=== PATIENT | female | born 1995 | race American Indian/Alaskan Native ===

== ENCOUNTER 2020-08-09 06:52 | Day surgery (SDC) | payer BC ==
[2020-08-03 11:10] LABS: Hematocrit 38.8 % (30.3-42.9); Hemoglobin 13.3 gm/dl (10.1-14.3); Mean Corpuscular HGB Conc 34 % (30-34); Mean Corpuscular Volume 96 fl (79-97); Platelet Count 290 K/mm3 (140-440); Red Blood Count 4.06 M/mm3 (3.65-5.03); Red Cell Distribution Width 13.8 % (13.2-15.2)
[~2020-08-09 06:52] MED LIST: ACETAMINOPHEN 500 MG TAB PO SCH; CELECOXIB 200 MG CAP PO NR; GABAPENTIN 300 MG CAP PO NR; LACTATED RINGERS 1,000 ML IV SCH; MIDAZOLAM 2 MG/2 ML INJ IV NR; SCOPOLAMINE TRANSDERMAL PATCH 72 HR TD NR; ceFAZolin/Water 2 GM/20 ML 2 GM/20 ML SYRINGE IV NR
[2020-08-09] MEDS ORDERED: BUPIVACAINE/PF (0.25%) 2.5 MG/ML 30 ML VIAL INFILTRATI ONE ×3 (07:21→08:58)
[2020-08-09] MEDS ORDERED: LIDOCAINE (1%) 10 MG/1 ML VIAL 20 ML MDV ONE (07:21)
[2020-08-09] MEDS ORDERED: ACETAMINOPHEN 325 MG/10.15 ML ORAL LIQD UNIT DOSE PO NR (07:30)
[2020-08-09] MEDS ORDERED: GABAPENTIN 500 MG/10 ML ORAL LIQD PO NR (07:30)
[2020-08-09] MEDS ORDERED: HYDROmorphone 1 MG/1 ML INJ IV PRN (07:33)
[2020-08-09] MEDS ORDERED: ONDANSETRON 4 MG/2 ML INJ IV PRN (07:33)
--- NOTE | 2020-08-09 07:33 | Anesthesia Consultation ---
Anesthesia Consult and Med Hx Date of service: 08/09/20 - Airway Anesthetic Teeth Evaluation: Good ROM Head & Neck: Adequate Mental/Hyoid Distance: Adequate Mallampati Class: Class III Intubation Access Assessment: Possibly Difficult - Pre-Operative Health Status ASA Pre-Surgery Classification: ASA1 Proposed Anesthetic Plan: General - Pulmonary Hx Smoking: Yes (smoked for <6months, quit 3yrs) Hx Respiratory Symptoms: No - Cardiovascular System Hx Hypertension: No - Central Nervous System CVA: No - Endocrine Hx Renal Disease: No Hx Liver Disease: No Hx Insulin Dependent Diabetes: No Hx Non-Insulin Dependent Diabetes: No Hx Thyroid Disease: No - Other Systems Hx Obesity: Yes (BMI 34) - Additional Comments Anesthesia Medical History Comments: No hx anesthetic complications.
--- NOTE | 2020-08-09 07:33 | Anesthesia Day of Surgery ---
Anesthesia Day of Surgery - Day of Surgery Patient Examined: Yes Patient H&P Reviewed: Yes Patient is NPO: Yes
[2020-08-09] MEDS ORDERED: LIDOCAINE MPF (2%) 20 MG/1 ML VIAL 5 ML ONE (07:42)
[2020-08-09] MEDS ORDERED: fentaNYL 100 MCG/2 ML INJ ONE (07:43)
[2020-08-09] MEDS ORDERED: propofoL 200 MG/20 ML VIAL IV ONE ×2 (07:43→08:26)
[2020-08-09] MEDS ORDERED: ACETAMINOPHEN 325 MG/10.15 ML ORAL LIQD UNIT DOSE ONE (07:45)
[2020-08-09] MEDS ORDERED: GABAPENTIN 500 MG/10 ML ORAL LIQD ONE (07:46)
[2020-08-09] MEDS ORDERED: dexAMETHasone 20 MG/5 ML VIAL ONE (08:26)
[2020-08-09] MEDS ORDERED: ONDANSETRON 4 MG/2 ML INJ ONE (08:26)
[2020-08-09] MEDS ORDERED: NEOMY 40 MG/POLYMYXIN B 200,000 UNITS/ML (GU) AMPULE IR ONE ×2 (08:29→08:40)
[2020-08-09] MEDS ORDERED: WATER FOR IRRIG STERILE 1,500 ML BOTTLE IR ONE (08:39)
[2020-08-09] MEDS ORDERED: LIDOCAINE (1%) 10 MG/1 ML VIAL 20 ML MDV INFILTRATI ONE ×2 (08:58)
[2020-08-09] MEDS ORDERED: BACITRACIN ZINC OINT 28.4 GM TP ONE ×2 (08:59)
--- NOTE | 2020-08-09 09:47 | Short Stay Summary ---
Short Stay Documentation Date of service: 08/09/20 - History H&P: obtained from office - Allergies and Medications Current Medications: Allergies No Known Allergies Allergy (Unverified 08/02/20 11:22) Home Medications Medication Instructions Recorded Confirmed Last Taken Type Ibuprofen [Motrin 800 MG tab] 800 mg PO Q8HR PRN #12 tablet 08/09/20 Unknown Rx Active Medications Celecoxib (Celecoxib 200 Mg Cap) 200 mg PO PREOP NR Stop: 08/09/20 23:00 Last Admin: 08/09/20 07:47 Dose: 200 mg Documented by: Hydromorphone HCl (Hydromorphone 1 Mg/1 Ml Inj) 0.5 mg IV Q10MIN PRN PRN Reason: Pain , Severe (7-10) Stop: 08/09/20 20:00 Cefazolin Sodium (Ancef/Sterile Water 2 Gm/20 Ml) 2 gm in 20 mls @ 80 mls/hr IV PREOP NR; Protocol Stop: 08/09/20 23:01 Lactated Ringer's (Lactated Ringers) 1,000 mls @ 100 mls/hr IV DIRECT CHARLY Stop: 08/09/20 23:59 Last Admin: 08/09/20 07:47 Dose: 100 mls/hr Documented by: Midazolam HCl (Midazolam 2 Mg/2 Ml Inj) 2 mg IV PREOP NR Stop: 08/09/20 23:00 Last Admin: 08/09/20 07:55 Dose: 2 mg Documented by: Ondansetron HCl (Ondansetron 4 Mg/2 Ml Inj) 4 mg IV ONCE PRN PRN Reason: Nausea And Vomiting Stop: 08/09/20 18:00 Scopolamine (Scopolamine Transdermal Patch 72 Hr) 1 each TD PREOP NR Stop: 08/09/20 23:00 Last Admin: 08/09/20 09:16 Dose: 1 each Documented by: - Brief post op/procedure progress note Date of procedure: 08/09/20 Pre-op diagnosis: Left breast sebaceous cyst lower inner quadrant Post-op diagnosis: same Procedure: Left breast sebaceous cyst excisional biopsy Anesthesia: GETA Findings: Left breast sebaceous cyst 8:00 position close to sternum-center of cyst with drainage Surgeon: CUAUHTEMOC GONSALES Estimated blood loss: minimal Pathology: list (left breast sebaceous cyst) Specimen disposition: to lab Condition: stable - Disposition Condition at discharge: Good Disposition: DC-01 TO HOME OR SELFCARE Short Stay Discharge Plan Activity: other (no heavy lifting) Diet: regular Wound: keep clean and dry (apply bacitracin twice daily; may shower in 48 hours; do not manipulate incision; wear breast binder) Follow up with: CUAUHTEMOC GONSALES MD [Staff Physician] - 7 Days Prescriptions: Ibuprofen [Motrin 800 MG tab] 800 mg PO Q8HR PRN #12 tablet PRN Reason: Pain , Severe (7-10)
--- NOTE | 2020-08-09 09:53 | Operative Report ---
Operative Report Operative Report: Operative Report: August 09, 2020 Preoperative diagnosis: Left breast sebaceous of the lower inner quadrant Postoperative diagnosis: Same Procedure: Complex left breast breast sebaceous cyst excisional biopsy of lower inner quadrant Surgeon: Estephania Melgoza MD Anesthesia: General Findings: Left breast sebaceous cyst at the 8:00 position Complications: None EBL: Less then 25 cc, minimal Disposition: PACU in good condition Indications for operative procedure: This is a 24-year-old young lady with left breast sebaceous cyst at 8:00 position position close to the sternum. Patient with chronic history of infection and she wished to proceed with excision. Patient wished to proceed with the above proceure. Procedure in detail: Patient was taken to the operating room and was laid supine. Gen. anesthesia was administered. Left breast and axilla were prepped and draped in the normal sterile operative fashion. Timeout was performed. Ultrasound was used as well identification of known breast sebaceous cyst at the 8:00 position close to the sternum. Skin thickening noted adjacent to sebaceous cyst medially and center of cyst draining, no erythema. Attention was then taken towards the left breast. Ultrasound was used as well, an ellipictal incisio was made encompassing the sebaceous cyst with a 15 blade knife and dissection taken down to subcutaneous tissues. Flaps were raised around the cyst to include the capsule. The sebaceous cyst was removed in in its entirety after grasped with dissection taken down posteriorly with the aide of the Bovie cautery. Complex excision performed to include the capsule. Hemostasis was obtained with the Bovie cautery. Specimen was sent to pathology. Ultrasound used and no other suspicious lesions present. The breast cavity was appropriately irrigated with antibiotic solution and suctioned. Hemostasis was noted. Deep breast tissues were approximated and closed using interrupted 3-0 Vicryl and the subcutaneous tissues approximated and closed using interrupted 3- 0 Vicryl followed by closing of the skin with a running 4-0 Monocryl and dermabond. The patient tolerated surgery very well and she was awaken from anesthesia without any complication and transported to PACU in good condition.
[2020-08-09 11:14] VITALS: BP 122/78
--- NOTE | 2020-08-09 13:46 | Post Anesthesia Evaluation ---
- Post Anesthesia Evaluation Patient Participated: Yes Airway Patent: Yes Stable Respiratory Function: Yes Nausea/Vomiting: No Temp > 96.8F: Yes Pain Manageable: Yes Adequeate Hydration: Yes Anesthesia Complications: No
[2020-08-09] MEDS ORDERED: IBUPROFEN 800 MG TAB PO PRN (14:00)
== END 2020-08-09 10:50 | disposition home or self-care (01) ==
LOC: OR 06:52
PROVIDERS: ATTEND Surgery
DX: L72.3 Sebaceous cyst (principal); N60.32 Fibrosclerosis of left breast; E66.9 Obesity, unspecified; Z20.822 Contact with and (suspected) exposure to COVID-19; Z80.3 Family history of malignant neoplasm of breast; Z79.899 Other long term (current) drug therapy; Z87.891 Personal history of nicotine dependence; Z98.890 Other specified postprocedural states; Z68.34 Body mass index [BMI] 34.0-34.9, adult
CPT/HCPCS: 19120; 36415; 84703; 85027; 88304; J0690; J1100; J2250; J2405; J2704; J3010; J7120; U0003